=== PATIENT | male | born 1960 | race Caucasian/White ===

== ENCOUNTER 2024-11-09 12:32 | Inpatient (IN) | payer BC, SELFPAY ==
[2024-11-09] VITALS (20 sets, daily range): BP systolic 106–182; BP diastolic 51–107
--- NOTE | 2024-11-09 11:15 | ED.GENMED ---
History of Present Illness
General
Chief Complaint: Chest Pain
Time Seen by Provider: 11/09/24 11:07
History of Present Illness
History of Present Illness:
TIME OF INITIAL ENCOUNTER: 11:01 AM
HPI: At around 10:50 AM, the patient started having crushing chest discomfort. He has never had pain like this before. He saw small equipment operator in the past at [facility] for preventative measures but has not had any recent stress testing. He has some
diaphoresis. He has some intermittent waves of nausea and dry heaves.
EXAM:
GENERAL: The patient is ill-appearing and appears uncomfortable, recurrent dry heaves
HEENT: Moist oral mucosa
CARDIOVASCULAR: No murmurs, normal heart rate, regular rhythm, No chest wall tenderness
PULMONARY: No respiratory distress, breath sounds are clear and equal
ABDOMEN: Soft with no peritoneal signs, no tenderness
NEUROLOGIC: Excellent strength all extremities, no coordination deficits
PSYCHIATRIC: Appears anxious, appropriate mental status, normal insight and judgement
EXTREMITIES: Nontender, no edema, moves all extremities equally
SKIN: No rash, no lesions
NUMBER AND COMPLEXITY OF PROBLEMS ADDRESSED AT THE ENCOUNTER
� Chronic conditions affecting care: Denies any coronary disease, multiple knee surgeries
� Acute Exacerbation and/or Progression of Chronic Illness: This is an acute problem
� Differential Diagnosis includes: STEMI noted on initial EKG
AMOUNT AND/OR COMPLEXITY OF DATA TO BE REVIEWED AND ANALYZED
� I performed an independent evaluation of and my interpretation is:
EKG: Sinus, anterior ST elevation NV
CT:
X-rays: Chest x-ray ordered but not obtained as patient emergently went to the Medical Record Specialist
Laboratory Studies: Troponin less than 0.012 however symptoms just darted minutes ago, glucose is 314, CBC unremarkable
Other:
� Review of other/old records: I reviewed records, the patient was seen here in 2010 with chest pain
� Clinical information was obtained by an independent historian: None needed
� Prescriptions/Medications Considered but not given:
� Further testing considered but not performed:
RISK OF COMPLICATIONS AND/OR MORBIDITY OR MORTALITY OF PATIENT MANAGEMENT
� Social determinants of health affecting care: Lives at home
� Discussion with other providers:
� Escalation of care including admission/observation vs risk of discharge considered: The patient was seen immediately upon arrival. He was brought back immediately after my evaluation of the EKG that was performed at 11:01 AM.
His symptoms started at about 10:50 AM. STEMI confirmed. He was immediately placed into room 41 and labs obtained. Placed on nitroglycerin drip and heparin drip. Aspirin and Brilinta were also ordered. Dr. Foster at bedside at 11:10 AM and took
to the Medical Record Specialist.
ANY OTHER UPDATES:
Past History
Past History
ED Past Medical History: Other (Kidney stones); Negative Asthma, HTN, Hypercholesterolemia or NIDDM
ED Past Surgical History: Appendectomy, Orthopedic (6 knee surgery's, Status post lumbar discectomy) and Other (Recent, 3 days ago, removal of lipoma from the right upper chest gravity.)
Social History
Tobacco: Non-smoker
Alcohol: Occasional
Drug: None
Personal:
Living: with family
Employment: Employed
Family History
Family History: Other (Father with coronary disease)
Phy Exam
Physical Exam
Physical Exam:
See HPI
Scores
Heart Score for Chest Pain Patients
STEMI patient?: Yes
Course
Orders/Labs/Results
Orders:
Orders
11/09/24 11:01
Electrocardiogram (*1) Urgent
Reason for Study: Chest Pain
EKG- Treatment ONCE
11/09/24 11:09
Aspirin Chewable [Low Strength Aspirin] 324 mg .ROUTE .STK-MED ONE
Ticagrelor [Brilinta] 180 mg .ROUTE .STK-MED ONE
11/09/24 11:11
Complete Blood Count/With Diff Urgent
Comprehensive Metabolic Panel Urgent
PT/INR [Prothrombin Time] Urgent
Troponin I Urgent
Ondansetron Injectable [Zofran] 4 mg .ROUTE .STK-MED ONE
11/09/24 11:12
Nitroglycerin 100 mg/250 ml [Nitroglycerin Premix] 100 mg in 250 ml .ROUTE .STK-MED
11/09/24 11:15
Heparin 10,000 units .ROUTE .STK-MED ONE
Midazolam HCl [Versed] 2 mg .ROUTE .STK-MED ONE
Verapamil Injectable [Isoptin/Verapamil Injection] 5 mg .ROUTE .STK-MED ONE
11/09/24 11:16
Heparin 1000 Units/500 ml [Heparin] 1,000 units in 500 ml .ROUTE .STK-MED
Heparin Sodium,Porcine/Ns/Pf [Heparin 2000 Units/1000 ml] 2,000 unit in 1,000 ml .ROUTE .STK-MED
Lidocaine HCl/Pf [Xylocaine-Mpf 1% Vial] 100 mg .ROUTE .STK-MED ONE
Nitroglycerin [Tridil] 1,500 mcg .ROUTE .STK-MED ONE
11/09/24 11:19
Heparin 5,000 units .ROUTE .STK-MED ONE
Nitroglycerin Sublingual [Nitrostat (Sublingual)] 0.4 mg .ROUTE .STK-MED ONE
11/09/24 11:27
Verapamil Injectable [Isoptin/Verapamil Injection] 5 mg .ROUTE .STK-MED ONE
11/09/24 11:39
Eptifibatide [Integrilin] 20 ml .ROUTE .STK-MED
11/09/24 11:51
Morphine Sulfate 4 mg .ROUTE .STK-MED ONE
Abnormal Lab Results
11/09/24
11:11
Absolute Lymphs (auto) 4.3 H 10^3/uL
(1.2-3.4)
Absolute Monos (auto) 1.0 H 10^3/uL
(0.1-0.6)
Neutrophils % 40.9 L %
(42.2-75.2)
Monocytes % 10.7 H %
(1.7-9.3)
Creatinine 0.6 L mg/dL
(0.7-1.3)
Glucose 314 H mg/dl
(70-99)
ALT 53 H U/L
(0-50)
11/09/24 11:11
11/09/24 11:11
Vital Signs
Initial and Last Documented VS:
Initial Vital Signs
Pulse Resp
113 30
11/09/24 11:06 11/09/24 11:06
Last Documented Vital Signs
Temp Pulse Resp BP Pulse Ox
36.7 C 113 30 182/105 99
11/09/24 11:13 11/09/24 11:06 11/09/24 11:06 11/09/24 11:30 11/09/24 11:13
*Critical Care Note
Total Time (30-74mins, 75-104mins- exclusive of procedures): Not Applicable
ED Attending Note
-
Portions of this chart may have been created with voice recognition software.� Occasional wrong word or��sound alike� substitutions may have occurred due to the inherent limitations of voice recognition software.
Discharge Plan
Departure
Patient Disposition: REHAB SPEC
Date of Disposition: 11/09/24
Time of Disposition: 11:14
Presentation/result/management discussed w/ accepting /DO: dr foster
Discharge Problem:
ST elevation NV (STEMI)
Prescriptions:
No Action
acetaminophen-codeine 1 TABLET tablet
1 tab PO Q4H PRN (Reason: pain)
levofloxacin 500 MG tablet
500 mg PO DAILY
tamsulosin 0.4 MG capsule
0.4 mg PO DAILY
hydrocodone-acetaminophen [Vicodin] 1 EACH tablet
1 - 2 ea PO Q4 PRN (Reason: pain) Qty: 15 0RF
oxycodone 5 MG tablet
5 mg PO Q6H PRN (Reason: pain) Qty: 14 0RF
Referrals:
Alfonso Harvey, [Family Provider] -
Interventions
Interventions:
*Risk Screen - Suicide Last Done: 11/09/24 11:08
*General Assessment Last Done: 11/09/24 11:08
*Neglect/Abuse Screening Last Done: 11/09/24 11:08
*ED- Fall Risk Assessment Last Done: 11/09/24 11:08
*ED COVID-19 Vaccine History Last Done: 11/09/24 11:08
*Nursing Disposition Last Done: 11/09/24 11:31
ED- Cardiac Assessment Last Done: 11/09/24 11:28
Discharge Date and Time
Discharge Date/Time: 11/09/24 11:31
Print Language: PALAUAN
[2024-11-09 11:21] LABS: % Basophils 0.5 % (0-2); % Eosinophils 1.2 % (0-6); % Immature Granulocytes 0.2 % (0-0.5); % Lymphocytes 46.5 % (20.5-51.1); % Monocytes 10.7 % (1.7-9.3); % Neutrophils 40.9 % (42.2-75.2); Absolute Basophils 0.1 10^3/uL (0-0.2); Absolute Eosinophils 0.1 10^3/uL (0-0.7); Absolute Lymphocytes 4.3 10^3/uL (1.2-3.4); Absolute Neutrophils 3.8 10^3/uL (1.4-6.5); Hematocrit 48.1 % (39.0-52.0); Hemoglobin 16.5 g/dL (13.0-18.0); Mean Corp Hgb Conc. 34.3 g/dL (33.0-37.0); Mean Corpuscular Hgb 29.6 pg (27.0-31.0); Mean Corpuscular Volume 86.2 fL (80.0-94.0); Nucleated Red Blood Cells % 0 % (-); Platelet Count 274 10^3/uL (130-400); Red Blood Cell Count 5.58 10^6/uL (4.70-6.10); Red Cell Dist. Width 12.3 % (11.5-14.5); White Blood Cell Count 9.3 10^3/uL (4.8-10.8)
--- NOTE | 2024-11-09 11:27 | HPS.HSE ---
Family Physician
-
Family Physician: Alfonso Harvey, DO
Chief Complaint
-
Anterior STEMI
History of Present Illness
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 EKG with Anterior MUKUND. He was given heparin 5000cc, ASA 324mg and Brilinta 180mg and he was brought urgently to the production laborer. On arrival chest pain 6-01/10.
Medical History
Past Medical History
Past Medical History: Reports Hypercholesterolemia, NIDDM and Other (BPH, alopecia, vitamin D def, mild depression)
Past Surgical History: Reports Appendectomy and Orthopedic (6 knee sx, 2 discectomy, bicep tendon repair)
Social History
Tobacco: Non-smoker
Alcohol: Occasional
Drug: None
Personal:
Living: With Family
Employment: Retired
Family History
Family History: CAD (father heart disease)
Allergies / Home Medications
Allergies reflects when Allergies were last updated in [employer].
Home Medications with original date entered in [employer]
Allergy/Medication List:
�Medication �Instructions �Recorded �Confirmed �Type
acetaminophen 300 mg-codeine 30 mg 1 tab PO Q4H PRN pain 06/21/15 06/21/15 History
tablet
hydrocodone 5 mg-acetaminophen 300 1 - 2 ea (1 - 2 x 5-300 mg) PO Q4 06/21/15 Rx
mg tablet (Vicodin) PRN pain #15 tabs
levofloxacin 500 mg tablet 500 mg PO DAILY 06/21/15 06/21/15 History
tamsulosin 0.4 mg capsule 0.4 mg PO DAILY 06/21/15 06/21/15 History
oxycodone 5 mg tablet 5 mg PO Q6H PRN pain #14 tabs 12/24/18 Rx
Allergies
Allergy/AdvReac Type Severity Reaction Status Date / Time
fentanyl Allergy violent Verified 12/24/18 11:49
nausea/vomiting
Review of Systems
-
Cardiac: Reports Chest Pain ( on arrival to production laborer)
Physical Exam
Vital Signs
Vital Signs
Temp Pulse Resp Pulse Ox
98.1 F 113 30 99
11/09/24 11:13 11/09/24 11:06 11/09/24 11:06 11/09/24 11:13
Physical Exam
General: Appears in Distress (deferred full exam as being prepped and draped for urgent procedure)
Laboratory Results
-
11/09/24 11:11
Data Reviewed
-
Medical Tests (Nuc Med, Echo, EKG etc): Discussed with Physician
Impression/Plan
-
PCP: Alfonso Harvey MD
IMPRESSION:
Acute Anterior STEMI
Occluded LAD post PCI
Hyperlipidemia
NIDDM
BPH
h/o depression
Vitamin D def
PLAN:
Admit IVU post PCI
serial troponin to peak
Check Echo today
DAPT ASA/Brilinta (CM to eval cost)
New start to low dose BB and if EF low will add KRYS/ARB
Check CVE new start to high intensity statin
DM - check A1C, SSI while hospitalized, hold metformin 48hrs post, resume Ozempic after dc
Cardiac rehab c/s
f/u cards 2-4 weeks
This diagnosis is a threat to life
continue to monitor on
[2024-11-09 11:35] LABS: ALT (SGPT) 53 U/L (0-50); AST (SGOT) 33 U/L (17-59); Albumin 4.4 g/dl (3.5-5.0); Alkaline Phosphatase 125 U/L (38-126); Blood Urea Nitrogen 20 mg/dl (9-20); Calcium 9.9 mg/dl (8.4-10.2); Carbon Dioxide 22 mmol/L (22-30); Chloride 103 mmol/L (98-107); Estimated Creatinine Clearance > 125 ml/min; Glucose 314 mg/dl (70-99); Sodium 139 mmol/L (135-145); Total Bilirubin 0.6 mg/dl (0.2-1.3); Total Protein 7.2 g/dl (6.3-8.2); eGFR > 60.00
[2024-11-09 11:47] LABS: Troponin I < 0.012 ng/ml
[2024-11-09 11:52] LABS: INR 0.89; PT 12.4 Sec (11.4-14.6)
--- NOTE | 2024-11-09 13:00 | PTCARENOTE ---
Patient received from CCL s/p PCI w/CHERRI to LAD. NSR via cm, SaO2 @ 94% on RA. Denies pain. R wrist procedural site w/TR band in place, inflated w/10ml - no ecchymosis, hematoma, or drainage noted. EKG performed. Patient oriented to room and unit.
to bedside, both updated to status. Admission completed. See work list for full assessment and interventions performed.
[2024-11-09] MEDS: NSS 1000 IV (13:05)
--- NOTE | 2024-11-09 13:05 | ITS.CL.CATH ---
Metal Mixer - Catheterization
Cardiac Catheterization
Procedure Report:
LEFT HEART CATH AND CORONARY INTERVENTION
Date of Procedure: November 09, 2024
Referring: [facility] Emergency Department
PROCEDURES:
1. Left heart catheterization with coronary and single-plane left ventriculography
2. Successful stenting of the 100% occluded mid LAD with placement of a 3.5 x 26 mm Alex stent that was implanted at nominal pressures and postdilated with a 4.0 mm noncompliant balloon
3. Intravascular ultrasound
INDICATION: This is a 64-year-old gentleman with a family history of premature coronary artery disease who presented to [facility] following the sudden onset of crushing substernal chest pain. Symptoms began approximately 20 minutes prior
to arrival. He drove himself to the emergency room with ongoing symptoms.
ACCESS: Right radial artery, 6 Peruvian sheath
HEMODYNAMICS (mmHg):
AO (s/d, m) : 145/89, 113
LV (s/d) : 137/14
LVEDP : 26
CORONARY FINDINGS
Dominance: Right
LEFT MAIN: Normal
LEFT ANTERIOR DESCENDING: The LAD arises normally from the left main and runs in the anterior interventricular groove. The first diagonal branch arises in the proximal third of the LAD then bifurcates into 2 medium caliber daughter branches. The
LAD becomes 100% occluded just beyond the diagonal branch.
CIRCUMFLEX: The circumflex is large and supplies a single large obtuse marginal branch that bifurcates distally
RIGHT CORONARY: The right coronary artery is a medium caliber dominant vessel with only minor irregularities over its course.
ANGIOPLASTY PROCEDURE DETAIL: Upon review of the diagnostic catheterization films the decision was made to proceed with immediate percutaneous intervention on the 100% occluded LAD. The origin of the left main was cannulated with a 6 Peruvian XB 3.5
guiding catheter. The patient received aspirin and ticagrelor in the emergency department. The ACT was monitored throughout the procedure and maintained within therapeutic limits.
A short BMW guidewire was advanced to the mid LAD and across the occluded segment and was then advanced to the distal vessel. The first diagonal branch arises from the proximal third of the LAD and bifurcates into 2 small-medium caliber daughter
branches. A second wire was advanced to serve as a marker wire should plaque shift occur with loss of the diagonal branch.
The LAD underwent predilation with a 2.0 x 12 mm Euphora balloon. Antegrade flow was reestablished. Double bolus Integrilin was administered. A 3.5 x 26 mm Alex stent was then advanced over the guidewire and positioned with angiographic and
fluoroscopic guidance. The stent was implanted at nominal pressures. Intravascular ultrasound was then performed with a luminal diameter measuring approximately 3.5 mm as a distal vessel reference and measured over 4 mm proximal to the stent. The
stent appeared well-approximated to the vessel wall but could be somewhat better expanded in the mid to mid proximal portion of the stent. The entire stent was postdilated with a 4.0 x 15 mm noncompliant balloon to 8 alejandra on the distal edge of the
stent and 16 alejandra within the midportion of the stent and 25 alejandra at the proximal edge of the stent. The final angiographic result was excellent and NESSA-3 flow persisted into the first diagonal branch requiring no additional intervention
VENTRICULOGRAPHY: Left ventriculography was performed in ACEVEDO projection. The digital single-plane left ventricular ejection fraction was estimated at 40-45% with mid to distal anterior, apical, and inferoapical hypokinesis noted.
SEDATION: 52 minutes of procedural sedation was utilized. An independent medical secretary teacher was present to assist with and help manage the patient's level of consciousness and physiologic status
RADIATION SUMMARY: Fluoro Time (min): 9.9, Dose (mGy): 1384, DAP (Gy.cm2) : 108
CONCLUSIONS
1. Acute anterior wall myocardial infarction with emergent coronary intervention of 100% occluded mid LAD. The LAD was stented with a 3.5 x 26 mm Alex stent that was implanted at nominal pressures and postdilated with a 4.0 mm noncompliant balloon
to high pressures
2. Mildly reduced left ventricular systolic function an estimated ejection fraction of 40-45%
RECOMMENDATIONS
1. Will trend serial troponin and check fasting lipid profile as well as hemoglobin A1c
2. Cardiac monitoring
3. Uninterrupted dual antiplatelet therapy for 12 months
4. High intensity lipid-lowering and guideline directed medical therapy for management of lipids and blood pressure
[2024-11-09 13:57] LABS: Glucose - Point of Care 270 mg/dl (70-99)
[2024-11-09] MEDS: NOVOLOG FLEXPEN 5 UNITS SC (14:33)
--- NOTE | 2024-11-09 14:41 | CM ---
SALEEM priced Brilinta thru patient's insurance/ [employer]- [phone]. Estimated cost of Brilinta is $0.
I placed call to patient's pharmacy/ [facility] in [place]-they have Brilinta in stock but only 15. They will reserve this supply for patient and have more in stock on Tuesday. TT to JENNIFER to send RX electronically to [facility].
--- NOTE | 2024-11-09 14:44 | CM ---
CM following for DC planning needs.
Met w/ patient at bedside to complete initial assessment; spouse also present.
Patient resides in a private, 2 story home w/ spouse. He is functionally indep. w/ ADLs, mobility without the use of any assisted device.
Pt. has RX plan and uses [facility] in [place] for prescription needs.
Reviewed estimated cost of Brilinta.
Antic. DC to home, no needs.
Will follow.
--- NOTE | 2024-11-09 16:15 | PTCARENOTE ---
VS stable, assessment unchanged. TR band removed, 4x4 dressing applied. Patient assisted oob to chair. remains at bedside.
[2024-11-09] MEDS: LIPITOR 40 MG PO (17:26)
--- NOTE | 2024-11-09 17:31 | CARDSERVLU ---
Echocardiogram with Lumason completed after protocol screening completed. Allergies verified.
Patent IV site: _LAC____
IV site flushed with 0.9% NaCl pre and post administration.
Diluted bolus method utilized to enhance visualization of ventricular stein.
Total volume given: ___4_ mL
Patient tolerated all procedures well without complications.
[2024-11-09] MEDS: NOVOLOG FLEXPEN-MODERATE RESISTANCE 1 UNITS SC (18:29)
[2024-11-09 18:35] LABS: Glucose - Point of Care 195 mg/dl (70-99)
--- NOTE | 2024-11-09 20:00 | PTCARENOTE ---
assumed care of patient @ 1900. received pt laying in bed, aox3. NSR on tele hr 80s-90s. +pulses throughout, no edema noted. BP stable. Lungs clear on room air. voiding clear yellow urine in urinal. Radial puncture site with dry dressing and
tegaderm CDI, no hematoma. PIV patent. resting comfortably in bed with call jimenez within reach .
[2024-11-09] MEDS: BRILINTA 90 MG PO (20:17)
--- NOTE | 2024-11-09 22:00 | PTCARENOTE ---
pt rang c/o anxiety and tingly feeling in chest. EKG done which showed NSR, results given to CTPA. Emotional reassurance provided. 0.25 xanax ordered and given for anxiety. call jimenez within reach .
[2024-11-09] MEDS: XANAX 0.25 MG PO (22:09)
[2024-11-10] VITALS (7 sets, daily range): BP systolic 93–127; BP diastolic 67–91
--- NOTE | 2024-11-10 | PTCARENOTE ---
troponin sent, pt resting comfortably after xanax with resolution of anxiety. call jimenez within reach .
[2024-11-10 00:11] LABS: Glucose - Point of Care 211 mg/dl (70-99)
[2024-11-10 05:13] LABS: Hemoglobin 16.1 g/dL (13.0-18.0); Mean Corpuscular Hgb 29.6 pg (27.0-31.0); Mean Corpuscular Volume 84.6 fL (80.0-94.0); Mean Platelet Volume 10.1 fL (7.4-10.4); Platelet Count 236 10^3/uL (130-400); Red Blood Cell Count 5.44 10^6/uL (4.70-6.10); Red Cell Dist. Width 12.5 % (11.5-14.5); White Blood Cell Count 13.3 10^3/uL (4.8-10.8)
[2024-11-10 05:35] LABS: ALT (SGPT) 77 U/L (0-50); AST (SGOT) 211 U/L (17-59); Albumin 4.5 g/dl (3.5-5.0); Alkaline Phosphatase 90 U/L (38-126); Blood Urea Nitrogen 8 mg/dl (9-20); Calcium 9.2 mg/dl (8.4-10.2); Carbon Dioxide 23 mmol/L (22-30); Chloride 104 mmol/L (98-107); Estimated Creatinine Clearance > 125 ml/min; Glucose 249 mg/dl (70-99); HDL Cholesterol 47 mg/dl; LDL Cholesterol, Calculated 165 mg/dl; Sodium 138 mmol/L (135-145); Total Bilirubin 1.1 mg/dl (0.2-1.3); Total Cholesterol 240 mg/dl (50-199); Total Protein 7.1 g/dl (6.3-8.2); Triglyceride 144 mg/dl (10-149); Very Low Density Lipoprotein 28 mg/dl (0-30); eGFR > 60.00
[2024-11-10] MEDS: NOVOLOG FLEXPEN-MODERATE RESISTANCE 5 UNITS SC ×2 (07:40→13:20)
--- NOTE | 2024-11-10 08:37 | W.PN.CARDCBS ---
Addendum entered and electronically signed by Napoleon Hammonds MD 11/10/24 10:59:
64-year-old man who presented November [address] segment elevation myocardial infarction, peak troponin 44
PMH: Hyperlipidemia, type 2 diabetes, depression, BPH
Current medications: Aspirin 81 mg a day, Brilinta 90 mg twice daily, atorvastatin 40 mg a day, metoprolol ER 25 mg daily,
96/73, pulse 96, respiratory 14, afebrile, weight is 89.2 kg, intake and output +1 L, lungs are clear, regular rate and rhythm, no obvious murmur, abdomen benign, extremities without clubbing cyanosis or edema
White count 13.3, hemoglobin 16.1 platelets 236, BUN and creatinine are 8 and 0.5, potassium is 4, troponin now 20.8, proBNP 1210
Echo 11/09/2024: EF 30%, severe LAD distribution wall motion abnormality, moderate mitral regurgitation, aortic sclerosis, normal right heart could not determine pulmonary artery systolic pressure
Cardiac catheterization 11/09/2024: Normal left main, occluded LAD following D1, circumflex, RCA without obstructive disease, EF 40-45%, 3.5 x 26 mm Alex stent to occluded mid LAD
Telemetry: 1 5 beat run of nonsustained VT
ECG sinus rhythm, anterolateral ME
Plan:
Overall he looks well despite anterior ME and significant LV dysfunction by echo with moderate mitral regurgitation. I am hopeful that ejection fraction will improve with time.
Will initiate treatment with Farxiga 10 mg a day.
Continue aspirin, Brilinta, atorvastatin and metoprolol, add KRYS/ARB and/or Entresto as BP permits. Short-term utility of MRA at this point in question.
We could consider LifeVest prior to discharge, though I am not enthusiastic and we could repeat echo looking for improvement in EF which may help determine necessity.
Anticipate discharge in 24 to 48 hours.
Original Note:
Today's Communication / Plan
-
Follow volume status. Check proBNP
Continue post ME care
Add losartan. Follow blood pressures
Hemoglobin A1c pending
Impression / Plan
-
PCP: Alfonso Harvey MD
IMPRESSION:
Acute Anterior STEMI s/p LAD PCI 11/09/24
Hyperlipidemia
NIDDM
BPH
h/o depression
Vitamin D def
ECHO 11/09/24: EF 30% with severe LAD distribution wall motion abnormality, mild LVH, moderate MR, aortic sclerosis, normal right heart
PLAN:
-Patient presented with chest pain and acute anterior STEMI status post urgent cardiac catheterization resulting in LAD PCI 11/09/2024
-Troponin peaked at 44
-EKG last evening sinus rhythm with evidence of anterolateral infarct
- Echocardiogram with EF 30%, results as above. Reviewed with patient 11/10/2024
- Continue aspirin, Brilinta
- Continue Toprol 25 mg daily
- Would attempt to add Cozaar 25 mg daily. Consider transition to ARNI/addition of Aldactone as blood pressure allows
-Does not appear to be volume overloaded on examination at present, however given reduced EF is high risk for heart failure. Discussed warning signs with patient. Added proBNP. LVEDP at time of cath was 26
- LDL 165. New start to high intensity statin
- Hemoglobin A1c pending, however blood sugars were significantly elevated on arrival. Appears he was on metformin as well as Ozempic prior to admission. Consider diabetic RESEARCH MICROBIOLOGIST evaluation
- Cardiac rehab
- Outpatient cardiac follow-up has been arranged. Suspect discharge in 24 to 48 hours
- Will need repeat assessment of EF by echo post revascularization
- Okay for transfer to IVU if bed available
Progress Note - Inclinometer Tester
Subjective
Date of Service: November 10, 2024
Feeling tired, but no chest discomfort. No shortness of breath
Objective
Labs:
11/10/24 05:03
11/10/24 05:02
Labs
Hgb 16.1 g/dL (13.0-18.0) 11/10/24 05:03
Hct 46.0 % (39.0-52.0) 11/10/24 05:03
Plt Count 236 10^3/uL (130-400) 11/10/24 05:03
PT 12.4 Sec (11.4-14.6) 11/09/24 11:11
INR 0.89 11/09/24 11:11
Sodium 138 mmol/L (135-145) 11/10/24 05:02
Potassium 4.0 mmol/L (3.5-5.1) 11/10/24 05:02
BUN 8 mg/dl (9-20) L 11/10/24 05:02
Creatinine 0.5 mg/dL (0.7-1.3) L 11/10/24 05:02
Glucose 249 mg/dl (70-99) H 11/10/24 05:02
Troponins
11/09/24 11/09/24 11/10/24
11:11 17:26 00:00
Troponin I < 0.012 44.300 H* D Cancelled
11/10/24 11/10/24
00:05 05:02
Troponin I 35.000 H* 20.800 H* D
Vital Signs and I&O:
Vital Signs
Temp Pulse Resp BP Pulse Ox
98.3 F 94 14 127/91 95
11/10/24 04:02 11/10/24 03:45 11/10/24 04:02 11/10/24 00:04 11/10/24 04:02
Vital Signs
Temp Pulse Resp BP Pulse Ox
98.3 F 94 14 127/91 95
11/10/24 04:02 11/10/24 03:45 11/10/24 04:02 11/10/24 00:04 11/10/24 04:02
Intake & Output
11/08/24 11/09/24 11/10/24 11/11/24
07:59 07:59 07:59 07:59
Intake Total 1630 / 1630
Output Total 600 / 600
Balance 1030 / 1030
Physical Exam
Physical Exam
GEN: No distress, awake, alert, oriented x3
HEENT: supple, anicteric, mmm, EOMI
LUNGS: CTA bilaterally, no wheezes/rales
CV: Reg, S1/S2, 1/6 murmur
ABD: soft, BS+, NT/ND
EXT: No cyanosis, clubbing, edema
NEURO: Gross non-focal
SKIN: Warm, pink, dry. No rash. Right wrist site clean dry and intact
[2024-11-10] MEDS: BRILINTA 90 MG PO ×2 (08:52→20:30)
[2024-11-10] MEDS: LOW STRENGTH ASPIRIN 81 MG PO (08:52)
[2024-11-10] MEDS: TOPROL XL 25 MG PO (08:52)
[2024-11-10 09:11] LABS: NT-proBNP 1210 pg/ml
[2024-11-10 11:29] LABS: Glycohemoglobin (HgbA1c) 11.1 % (4.0-5.6)
--- NOTE | 2024-11-10 12:00 | PTCARENOTE ---
independent in walking and care. no chest pain. VSS. HR 80-100. SR. RA
[2024-11-10 13:20] LABS: Glucose - Point of Care 280 mg/dl (70-99)
[2024-11-10] MEDS: FARXIGA 10 MG PO (13:21)
--- NOTE | 2024-11-10 16:51 | PTCARENOTE ---
no change in assessment from previous. BRP. tolerating food. no SOB or chest pain
[2024-11-10] MEDS: LIPITOR 40 MG PO (17:17)
[2024-11-10 17:30] LABS: Glucose - Point of Care 181 mg/dl (70-99)
[2024-11-10] MEDS: NOVOLOG FLEXPEN-MODERATE RESISTANCE 1 UNITS SC (17:30)
--- NOTE | 2024-11-10 20:00 | PTCARENOTE ---
assumed care of patient @ 1900. received pt laying in bed, aox3. ST on tele hr 100-110s. +pulses throughout, no edema noted. BP stable. Lungs clear on room air. voiding clear yellow urine in urinal. Radial puncture site with dry dressing and
tegaderm CDI, no hematoma. PIV patent. resting comfortably in bed with call jimenez within reach .
[2024-11-10 22:57] LABS: Glucose - Point of Care 180 mg/dl (70-99)
[2024-11-11 00:31] VITALS: BP 120/74
[2024-11-11] MEDS: XANAX 0.25 MG PO (00:33)
[2024-11-11 04:50] VITALS: BP 121/69
[2024-11-11 05:11] LABS: Hematocrit 47.3 % (39.0-52.0); Hemoglobin 16.6 g/dL (13.0-18.0); Mean Corp Hgb Conc. 35.1 g/dL (33.0-37.0); Mean Corpuscular Volume 85.5 fL (80.0-94.0); Mean Platelet Volume 9.9 fL (7.4-10.4); Platelet Count 240 10^3/uL (130-400); Red Blood Cell Count 5.53 10^6/uL (4.70-6.10); Red Cell Dist. Width 12.7 % (11.5-14.5); White Blood Cell Count 12.8 10^3/uL (4.8-10.8)
[2024-11-11 05:31] LABS: ALT (SGPT) 56 U/L (0-50); AST (SGOT) 69 U/L (17-59); Albumin 4.3 g/dl (3.5-5.0); Alkaline Phosphatase 80 U/L (38-126); Blood Urea Nitrogen 21 mg/dl (9-20); Carbon Dioxide 20 mmol/L (22-30); Chloride 108 mmol/L (98-107); Estimated Creatinine Clearance > 125 ml/min; Glucose 196 mg/dl (70-99); Sodium 140 mmol/L (135-145); Total Protein 6.9 g/dl (6.3-8.2); eGFR > 60.00
[2024-11-11 06:00] VITALS: BMI 26.0
[2024-11-11 08:48] VITALS: BP 108/83
[2024-11-11] MEDS: BRILINTA 90 MG PO ×2 (08:49→20:34)
[2024-11-11] MEDS: FARXIGA 10 MG PO (08:49)
[2024-11-11] MEDS: TOPROL XL 25 MG PO ×2 (08:50→20:33)
[2024-11-11] MEDS: LOW STRENGTH ASPIRIN 81 MG PO (08:50)
--- NOTE | 2024-11-11 10:10 | W.PN.CARDCBS ---
Today's Communication / Plan
-
Add losartan 12.5 daily
Try to uptitrate metoprolol ER to 25 twice daily
Follow-up echo in a.m.
Hopeful discharge in a.m. if stable
Impression / Plan
-
PCP: Alfonso Harvey MD
IMPRESSION:
Acute Anterior STEMI s/p LAD PCI 11/09/24
Hyperlipidemia
NIDDM
BPH
h/o depression
Vitamin D def
ECHO 11/09/24: EF 30% with severe LAD distribution wall motion abnormality, mild LVH, moderate MR, aortic sclerosis, normal right heart
PLAN:
Overall, he looks remarkably well, and I am hopeful that LV function will improve over echo performed on November 09. Will recheck follow-up study in a.m. with the hope of EF greater than 35% which would make issue of LifeVest less important.
Would like to have his heart rate lower, but blood pressure is relatively low. Will attempt to double metoprolol ER to 25 mg twice daily. Add losartan 12.5 mg daily.
If doing well, probable discharge tomorrow. Recheck EKG prior to discharge. It looks like his T waves are flipping on telemetry, expected evolution in setting of viable myocardium.
Progress Note - Professional Athletes Coach
Subjective
Date of Service: November 11, 2024:
64-year-old man who presented November [address] segment elevation myocardial infarction, peak troponin 44
PMH: Hyperlipidemia, type 2 diabetes, depression, BPH
Current medications: Aspirin 81 mg a day, Brilinta 90 mg twice daily, atorvastatin 40 mg at bedtime, metoprolol ER 25 mg daily, dapagliflozin 10 mg daily
108 over/83, pulse 98, resp rate 16, afebrile, head neck exam unremarkable, lungs are clear regular rate and rhythm, abdomen benign extremities without clubbing cyanosis edema, puncture site okay
White count 12.8, hemoglobin 16.6, BUN and creatinine 21 and 0.6, AST 69, ALT 56, potassium 4
Objective
Labs:
11/11/24 04:55
11/11/24 04:55
Labs
Hgb 16.6 g/dL (13.0-18.0) 11/11/24 04:55
Hct 47.3 % (39.0-52.0) 11/11/24 04:55
Plt Count 240 10^3/uL (130-400) 11/11/24 04:55
PT 12.4 Sec (11.4-14.6) 11/09/24 11:11
INR 0.89 11/09/24 11:11
Sodium 140 mmol/L (135-145) 11/11/24 04:55
Potassium 4.0 mmol/L (3.5-5.1) 11/11/24 04:55
BUN 21 mg/dl (9-20) H 11/11/24 04:55
Creatinine 0.6 mg/dL (0.7-1.3) L 11/11/24 04:55
Glucose 196 mg/dl (70-99) H 11/11/24 04:55
Troponins
11/09/24 11/09/24 11/10/24
17:26 00:00
Troponin I < 0.012 44.300 H* D Cancelled
11/10/24 11/10/24
00:05 05:02
Troponin I 35.000 H* 20.800 H* D
Vital Signs and I&O:
Vital Signs
Temp Pulse Resp BP Pulse Ox
36.5 C 98 16 108/83 94
11/11/24 08:00 11/11/24 08:50 11/11/24 04:00 11/11/24 08:50 11/11/24 08:00
Vital Signs
Temp Pulse Resp BP Pulse Ox
36.5 C 98 16 108/83 94
11/11/24 08:00 11/11/24 08:50 11/11/24 04:00 11/11/24 08:50 11/11/24 08:00
Intake & Output
11/09/24 11/10/24 11/11/24 11/12/24
07:59 07:59 07:59 07:59
Intake Total 1630 / 1870 720 / 840 120 / 120
Output Total 600 / 600
Balance 1030 / 1270 720 / 840 120 / 120
Physical Exam
Physical Exam
See above
[2024-11-11 11:44] VITALS: BP 115/77
[2024-11-11 11:59] LABS: Glucose - Point of Care 222 mg/dl (70-99)
[2024-11-11] MEDS: NOVOLOG FLEXPEN-MODERATE RESISTANCE 3 UNITS SC ×2 (12:00→19:12)
[2024-11-11] MEDS: COZAAR 12.5 MG PO (12:02)
--- NOTE | 2024-11-11 12:41 | PTCARENOTE ---
independent in care. walking without SOB or chest pain.
[2024-11-11 16:27] VITALS: BP 133/82
[2024-11-11 16:29] LABS: Glucose - Point of Care 147 mg/dl (70-99)
[2024-11-11] MEDS: NOVOLOG FLEXPEN-MODERATE RESISTANCE SC ×2 (16:48→19:06)
[2024-11-11] MEDS: LIPITOR 40 MG PO (19:07)
[2024-11-11 19:12] LABS: Glucose - Point of Care 213 mg/dl (70-99)
[2024-11-11 20:27] VITALS: BP 108/83
--- NOTE | 2024-11-11 21:00 | PTCARENOTE ---
Assumed care of pt from ayla RN. Walking rounds completed. Pt is AAOx3. YI. Appropriate. Ambulating independently. Sinus tach to sinus rhythm on the tele monitor. HR 90-100s. BP stable. Palpable pulses throughout. No edema noted. Pt on RA. POX
95%. Lung sounds audible. Abdomen soft/nontender. +BS. Pt voiding w/o issue. Right radial cath site intact and RADHA. No hematoma. PIV x1 intact. No c/o pain at this time. See worklist for full assessment and interventions. Call jimenez within reach.
[2024-11-11] MEDS: MELATONIN 5 MG PO (22:38)
[2024-11-12 00:30] VITALS: BP 103/76
--- NOTE | 2024-11-12 00:36 | PTCARENOTE ---
Assessment unchanged. Pt is sinus rhythm on the tele monitor. HR 90s. BP stable. Pt is 96% on RA. Right wrist cath site intact. Denies pain at this time. Call jimenez within reach.
[2024-11-12 04:12] VITALS: BP 99/74
[2024-11-12 04:20] VITALS: BMI 25.9
[2024-11-12 04:22] LABS: Hematocrit 47.5 % (39.0-52.0); Hemoglobin 15.9 g/dL (13.0-18.0); Mean Corp Hgb Conc. 33.5 g/dL (33.0-37.0); Mean Corpuscular Hgb 29.3 pg (27.0-31.0); Mean Corpuscular Volume 87.6 fL (80.0-94.0); Mean Platelet Volume 10.1 fL (7.4-10.4); Platelet Count 224 10^3/uL (130-400); Red Blood Cell Count 5.42 10^6/uL (4.70-6.10); Red Cell Dist. Width 12.9 % (11.5-14.5); White Blood Cell Count 12.8 10^3/uL (4.8-10.8)
[2024-11-12 04:49] LABS: ALT (SGPT) 45 U/L (0-50); AST (SGOT) 41 U/L (17-59); Albumin 3.9 g/dl (3.5-5.0); Alkaline Phosphatase 81 U/L (38-126); Blood Urea Nitrogen 26 mg/dl (9-20); Calcium 9.5 mg/dl (8.4-10.2); Carbon Dioxide 22 mmol/L (22-30); Chloride 107 mmol/L (98-107); Estimated Creatinine Clearance > 125 ml/min; Glucose 169 mg/dl (70-99); Magnesium 1.9 mg/dl (1.6-2.3); Potassium 4.2 mmol/L (3.5-5.1); Sodium 140 mmol/L (135-145); Total Protein 6.7 g/dl (6.3-8.2); eGFR > 60.00
--- NOTE | 2024-11-12 05:09 | ECGCV ---
<Napoleon Hammonds> notified of ECG critical value identified by electronic interpretation on ECG completed on <11/12/24>, at <0506>.
--- NOTE | 2024-11-12 05:10 | PTCARENOTE ---
Pt is sinus rhythm on the tele monitor. HR 80-90s. BP stable. Pt is 97% on RA. Voiding as needed. No c/o chest pain or dizziness. Afebrile. Labs drawn and sent. EKG obtained - showed critical value, CTPA and DCA acoustic engineer data processing control clerk notified. Call
jimenez within reach.
[2024-11-12 08:17] VITALS: BP 99/77
[2024-11-12] MEDS: FARXIGA 10 MG PO (08:42)
[2024-11-12] MEDS: LOW STRENGTH ASPIRIN 81 MG PO (08:42)
[2024-11-12] MEDS: BRILINTA 90 MG PO (08:43)
[2024-11-12] MEDS: TOPROL XL 25 MG PO (08:43)
[2024-11-12] MEDS: NOVOLOG FLEXPEN-MODERATE RESISTANCE 1 UNITS SC (08:45)
[2024-11-12 08:48] LABS: Glucose - Point of Care 169 mg/dl (70-99)
--- NOTE | 2024-11-12 11:34 | CM ---
Reviewed chart. Met with Mr. Hsu to review discharge plans. He states he is feeling well and maybe able to go home soon. He states prior to admission he reside with his spouse and son in a two story home with two steps to enter. He states his
primary bedroom/bathroom is on the first floor. He states prior to admission he was independent with ambulation and adls. He states he does not have any DME in the home. His Brilinta co-pay is zero and Israxiga need a prior auth. The phone number
for prior auth is [phone]. If the prior auth is approved he will have a zero co-pay. Telephone call to [facility]. The have a some Brilinta in stock but not full bottle. They can fill the amount they have and refill the rest when
Brilinta comes in. Medical work-up in progress. The discharge plan is to return home with his spouse and son when medically stable.
--- NOTE | 2024-11-12 11:42 | W.PN.CARDCBS ---
Addendum entered and electronically signed by Janice Keen PA-C 11/12/24 16:00:
Patient was seen by diabetic HANDS ASSEMBLER and started on metformin 500 mg BID plus glipizide 5 mg daily. Patient is also being given a glucometer and was instructed on testing. Troponin rechecked prior to d/c and trended down to 3.89 compared 20.8 on 11/10/24
at 0502. No chest pain, ambulating halls without difficulty.
Addendum entered and electronically signed by Napoleon Foster MD 11/12/24 13:04:
Attending addendum: Patient is NOT stable for immediate discharge today. He was admitted with a large anterior wall myocardial infarction with new ECG changes this am. He is asymptomatic. His HgbA1c measured 11.1% and he has yet to be seen by
diabetic nurse educator or started on good medical therapy for glucose control.
PE:
Gen: Awake, alert, oriented. NAD.
HEENT: NC/AT, sclera anicteric
Lungs: Clear to bases bilaterally
CV: RRR. No murmur or rub noted to day
Ext: No edema
RECOMMENDATIONS:
-Patient NOT ready for discharge. He has not been see or really started on good medical therapy for poorly controlled diabetes
-ECG with fairly diffuse ST changes. Doubtful ACS. Possible post CA changes. Pericardium with trace/small effusion
-Will check troponin. Angiograms reviewed.
Original Note:
Today's Communication / Plan
-
Explained admission and d/c plans/meds in detail and face to face with patient
Gave patient a printed copy of his cath report as well
Stable for d/c to home
Impression / Plan
-
PCP: Alfonso Harvey MD
Card: None prior to admission
Impression:
Admitted with acute anterior STEMI 11/09/24
CAD s/p 3.5 x 26 mm Alex stent LAD PCI 11/09/24
Hyperlipidemia
Newly diagnosed DM 2
BPH
h/o depression
Vitamin D def
ECHO 11/09/24: EF 30% with severe LAD distribution wall motion abnormality, mild LVH, moderate MR, aortic sclerosis, normal right heart
Echo 11/12/2024: Limited study, EF 35 to 40%, anterior, anteroseptal, anterolateral and apical hypokinesis, normal RV size and function, small anterior pericardial effusion
Plan:
-Patient with acute anterior CA on admission and Troponin was 44.3 initially and trended down thereafter.
-Patient had a 3.5 mm [place] CHERRI to the LAD and tolerating aspirin and Brilinta thus far. Appreciate help of CM who is checking on cost
-EF 30% by initial echo and improved a bit to 35-40% by echo 11/12/24
-New to Toprol XL 25 mg BID this admission
-New to losartan 12.5 mg daily this admission
-New to Farxiga 10 mg daily this admission and appreciate help of CM on checking cost, it will be $0/month following prior auth which the cardiology office is working on
-LDL 165 and new to atorvastatin 40 mg daily.
-ECG reviewed by me 11/12/24 and changes suggesting progression seen. No recurrence of CP.
-Tele reviewed by me and no arrhythmia
-Cardiac rehab consulted
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
-Likely d/c to home 11/12/24
Progress Note - Branch Store Manager
Subjective
Date of Service: November 12, 2024
He feels well, no chest pain
Objective
Labs:
11/12/24 04:11
11/12/24 04:11
Labs
Hgb 15.9 g/dL (13.0-18.0) 11/12/24 04:11
Hct 47.5 % (39.0-52.0) 11/12/24 04:11
Plt Count 224 10^3/uL (130-400) 11/12/24 04:11
PT 12.4 Sec (11.4-14.6) 11/09/24 11:11
INR 0.89 11/09/24 11:11
Sodium 140 mmol/L (135-145) 11/12/24 04:11
Potassium 4.2 mmol/L (3.5-5.1) 11/12/24 04:11
BUN 26 mg/dl (9-20) H 11/12/24 04:11
Creatinine 0.6 mg/dL (0.7-1.3) L 11/12/24 04:11
Glucose 169 mg/dl (70-99) H 11/12/24 04:11
Troponins
11/09/24 11/09/24 11/10/24
11:11 17:26 00:00
Troponin I < 0.012 44.300 H* D Cancelled
11/10/24 11/10/24
00:05 05:02
Troponin I 35.000 H* 20.800 H* D
Vital Signs and I&O:
Vital Signs
Temp Pulse Resp BP Pulse Ox
98 F 91 16 99/77 97
11/12/24 04:12 11/12/24 08:43 11/12/24 04:12 11/12/24 08:43 11/12/24 04:12
Vital Signs
Temp Pulse Resp BP Pulse Ox
98 F 91 16 99/77 97
11/12/24 04:12 11/12/24 08:43 11/12/24 04:12 11/12/24 08:43 11/12/24 04:12
Intake & Output
11/10/24 11/11/24 11/12/24 11/13/24
06:59 06:59 06:59 06:59
Intake Total 1630 / 1630 720 / 720 120 / 120
Output Total 600 / 600
Balance 1030 / 1030 720 / 720 120 / 120
Physical Exam
Physical Exam
GEN: NAD. AAOx3
HEENT: EOMI
LUNGS: RA. No audible wheeze
CV: SR on tele
EXT: Right radial without hematoma. No edema
NEURO: Gross non-focal
SKIN: No rash
--- NOTE | 2024-11-12 12:29 | W.DS.TRANS ---
DC Summary - Network Control Operator
-
Discharge Instructions:
Discharge Diagnosis/Procedures STEMI, Angioplasty with stent to LAD
Diet Low Cholesterol,Diabetic, Carb Controlled,Low
Sodium
Activity No strenuous activity
Additional Activity no heavy lifting greater than 10 pounds for 1
week!
Driving Restrictions As prior to admission
Bathing Restrictions OK to Shower
Blood Work BMP in 1 week
Other Services Cardiac Rehab
Specialty Instructions Weigh Daily
Instructions:
Stand-Alone Forms: DC Instructions- Cath/EP Lab
Changes to Home Medications: Yes
Discharge Medications:
DC Medications w/original date entered in [employer]
[id number]-cceag 300 mcg-K 60 mcg-lycop 600 mcg-lutein 300 mcg tablet (Centrum Silver Men) 1 tab PO DAILY Supplement 11/09/24
ticagrelor 90 mg tablet (Brilinta) 90 mg PO BID #60 tabs 11/09/24
aspirin 81 mg chewable tablet 81 mg PO DAILY #30 tabs 11/10/24
atorvastatin 40 mg tablet 40 mg PO QPM #30 tabs 11/10/24
dapagliflozin propanediol 10 mg tablet 10 mg PO DAILY Heart disease/condition #30 tabs 11/12/24
losartan 25 mg tablet 12.5 mg (1/2 x 25 mg) PO DAILY Heart disease/condition #30 tabs 11/12/24
metoprolol succinate 25 mg tablet,extended release 24 hr 25 mg PO BID Heart disease/condition #60 tabs 11/12/24
Home Medication Changes
All meds except multivitamin are new this admission
Pending Results: No
[2024-11-12 12:35] LABS: Hepatitis C Antibody Negative (Negative)
[2024-11-12 12:45] VITALS: BP 139/96
[2024-11-12] MEDS: COZAAR 12.5 MG PO (12:46)
--- NOTE | 2024-11-12 13:29 | PN.DE.MGMTRT ---
Insulin Management
- -
11/12/2024: Diabetes management Consult
64 year old male admitted with chest pain due to Acute anterior STEMI on 11/09/24, now s/p PCI with stent to LAD. PMH: Hyperlipidemia, Newly diagnosed T2DM, BPH, h/o depression, Vitamin D def. a1c 11.1%, Cr 0.6, eGFR >60
Premeal glucose range has been 147 to 280 since admission, diabetes regimen includes Farxiga 10mg daily and moderate corrective insulin only.
11/11 glucose range was 147 to 222, requiring 1-2 units of corrective insulin. FBG 169 today.
Had a lengthy discussion with patient about options for management, pt declined insulin at this tanya and requested oral regimen due to his complex work and travel schedules
Will start Metformin 500mg BID and glipizide 5mg daily. Will consult IP Dietitian for new onset diabetes nutrition counseling.
Discussed current A1C and emphasized importance of optimal glucose control to reduce risk of diabetes related complications.
Will ask Diabetes RN Educator to provide glucose monitor and instructions.
Pt was also provided list of local endo and encouraged him to call and set up an appt.
Meds at discharge: Farxiga 10mg daily, Metformin 500mg BID and glipizide 5mg daily.
Diabetes History
- -
Type of Diabetes: 2
Pre-Admission Diabetes Regimen
11/12/24
04:11
Creatinine 0.6 L
Lab Results
Hemoglobin A1c 11.1 % (4.0-5.6) H 11/10/24 05:03
Insulin Pump Settings
IP Diabetes Regimen
11/11/24 11/11/24 11/12/24
16:28 19:10 04:11
Glucose 169 H
POC Glucose 147 H 213 H
11/12/24
08:46
Glucose
POC Glucose 169 H
Meal type: Dinner
Amount consumed: 75%
Patient Education
[2024-11-12 13:49] LABS: Glucose - Point of Care 136 mg/dl (70-99)
[2024-11-12] MEDS: NOVOLOG FLEXPEN-MODERATE RESISTANCE SC (13:56)
--- NOTE | 2024-11-12 14:01 | PTCARENOTE ---
repeat trp drawn. VSS.
[2024-11-12] MEDS: GLUCOTROL 5 MG PO (15:29)
--- NOTE | 2024-11-12 16:11 | PTCARENOTE ---
11/12/2024 DIABETES EDUCATION
I met with Raymon to review diabetes management.
I educated on physiology of T2D, organ damage, managing with medications, monitoring BG, nutrition, activity, sleep and managing stress. I reinforced signs of hyperglycemia, hypoglycemia and hypoglycemia protocol; BS parameters and recommended HbA1c
goals, glucometer and CGM instructions, glucose tracker, medic alert bracelet and outpatient DSME program. Discussed normal target glucose ranges and a monitoring schedule fasting AM and 2 hours postprandial after alternating meals or as
recommended by MD. Written material provided.
I educated and reviewed using Contour Next glucometer, member acknowledged understanding with a self demonstration of checking BS. Provided her with a Contour Next sample kit. Educated we will order additional testing supplies, may not be same brand
as Contour Next.
He is interested in [employer] CGM, I provided booklet on CGM and educated to contact his insurance to discuss covered brands and coordinate ordering with PCP.
Encouraged patient to follow up with his PCP for post d/c appointment and to monitor medication and blood glucose levels. Provided list of endocrinologists if desired, to contact insurance company to verify in network status. Patient verbalized
understanding.
[2024-11-12] MEDS: GLUCOPHAGE 500 MG PO (16:21)
[2024-11-12] MEDS: LIPITOR 80 MG PO (17:03)
== END 2024-11-12 18:08 | disposition home or self-care (01) | DRG 322 ==
LOC: CVICU 12:32
PROVIDERS: Nurse Practitioner Adult Health; Physician Assistant Medical; ADMITTING PHYSICIAN Internal Medicine Interventional Cardiology; EMERGENCY PHYSICIAN Emergency Medicine; FAMILY PHYSICIAN Family Medicine
PROC: 027034Z Dilation of Coronary Artery, One Artery with Drug-eluting Intraluminal Device, Percutaneous Approach (ICD-10-PCS; 2024-11-09)
PROC: B2151ZZ Fluoroscopy of Left Heart using Low Osmolar Contrast (ICD-10-PCS; 2024-11-09)
PROC: B2111ZZ Fluoroscopy of Multiple Coronary Arteries using Low Osmolar Contrast (ICD-10-PCS; 2024-11-09)
PROC: 4A023N7 Measurement of Cardiac Sampling and Pressure, Left Heart, Percutaneous Approach (ICD-10-PCS; 2024-11-09)
PROC: B240ZZ3 Ultrasonography of Single Coronary Artery, Intravascular (ICD-10-PCS; 2024-11-09)
DX: I21.09 ST elevation (STEMI) myocardial infarction involving other coronary artery of anterior wall (principal); I47.29 Other ventricular tachycardia; I25.10 Atherosclerotic heart disease of native coronary artery without angina pectoris; E11.9 Type 2 diabetes mellitus without complications; E78.00 Pure hypercholesterolemia, unspecified; N40.0 Benign prostatic hyperplasia without lower urinary tract symptoms; E55.9 Vitamin D deficiency, unspecified; F32.A Depression, unspecified; I34.0 Nonrheumatic mitral (valve) insufficiency; Z82.49 Family history of ischemic heart disease and other diseases of the circulatory system
CPT/HCPCS: 93308; 80053; 80061; 82962; 83036; 83735; 83880; 84484; 85025; 85027; 85347; 85610; 86803; 92978; 93005; 93307; 93458; 99152; 99153; 99284; C1725; C1753; C1769; C1874; C1887; C1894; C9606; J1327; Q9950; Q9957; Q9967

== ENCOUNTER 2024-12-26 08:40 | Outpatient (RCR) | payer BC, SELFPAY ==
[2024-12-11 15:09] LABS: Glucose - Point of Care 98 mg/dl (70-99)
[2024-12-11 16:06] LABS: Glucose - Point of Care 101 mg/dl (70-99)
[2024-12-12 06:42] LABS: Glucose - Point of Care 122 mg/dl (70-99)
[2024-12-12 07:34] LABS: Glucose - Point of Care 120 mg/dl (70-99)
[2024-12-14 06:39] LABS: Glucose - Point of Care 103 mg/dl (70-99)
[2024-12-14 07:33] LABS: Glucose - Point of Care 81 mg/dl (70-99)
[2024-12-17 06:47] LABS: Glucose - Point of Care 136 mg/dl (70-99)
[2024-12-17 07:44] LABS: Glucose - Point of Care 126 mg/dl (70-99)
[2024-12-24 06:30] LABS: Glucose - Point of Care 114 mg/dl (70-99)
[2024-12-24 07:26] LABS: Glucose - Point of Care 147 mg/dl (70-99)
[2024-12-26 06:40] LABS: Glucose - Point of Care 124 mg/dl (70-99)
[2024-12-26 07:37] LABS: Glucose - Point of Care 119 mg/dl (70-99)
== END 2024-12-26 23:59 | disposition home or self-care (01) ==
LOC: CRHB 08:40
PROVIDERS: ATTENDING PHYSICIAN Internal Medicine Cardiovascular Disease
DX: I25.10 Atherosclerotic heart disease of native coronary artery without angina pectoris (principal); Z95.5 Presence of coronary angioplasty implant and graft; I25.2 Old myocardial infarction; I25.5 Ischemic cardiomyopathy
CPT/HCPCS: 93308; 82962; 93321; 93325; 93797; 93798

== ENCOUNTER 2025-01-28 08:49 | Outpatient (RCR) | payer BC, SELFPAY | END 2025-01-28 23:59 | disposition home or self-care (01) | LOC: CRHB 08:49 | PROVIDERS: ATTENDING PHYSICIAN Internal Medicine Cardiovascular Disease; FAMILY PHYSICIAN Family Medicine | DX: I25.10 Atherosclerotic heart disease of native coronary artery without angina pectoris (principal); Z95.5 Presence of coronary angioplasty implant and graft; I25.2 Old myocardial infarction | CPT/HCPCS: 93798 ==